=== PATIENT | female | born 1975 | race Caucasian/White ===

== ENCOUNTER 2016-12-13 00:07 | Emergency (ER) | payer OTHER ==
[~2016-12-13] VITALS: Ht 154.9 cm; Wt 72.0 kg
[2016-12-13 02:48] LABS: INFLUENZA TYPE B NEGATIVE FOR TYPE B (NEGATIVE)
[2016-12-13 04:32] VITALS: BP 110/70
== END 2016-12-13 04:33 | disposition home or self-care (01) ==
LOC: EMS 00:08
DX: J09.X2 Influenza due to identified novel influenza A virus with other respiratory manifestations (principal)
CPT/HCPCS: 87804; 99284